=== PATIENT | male | born 1990 | race Caucasian/White ===

== ENCOUNTER 2020-01-07 22:00 | Emergency (ER) | payer OTHER, SELFPAY ==
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
[2020-01-07 22:16] VITALS: BP 125/67; PULSE 65; RESP 16; TEMP 36.4; O2SAT 98
== END 2020-01-07 23:09 | disposition home or self-care (01) ==
PROVIDERS: Emergency Provider Emergency Medicine
DX: T59.811A Toxic effect of smoke, accidental (unintentional), initial encounter (principal); J68.0 Bronchitis and pneumonitis due to chemicals, gases, fumes and vapors
CPT/HCPCS: 71046; 88740; 99282; 99283

== ENCOUNTER 2021-01-23 10:12 | Emergency (ER) | payer OTHER, SELFPAY ==
[2021-01-23 10:15] VITALS: BP 137/97; PULSE 92; RESP 18; TEMP 36.5; O2SAT 98; BMI 30.3
--- NOTE | 2021-01-23 11:18 | ED_ITS ---
HPI - Extremity Injury (Upper) General Chief Complaint: Extremity Injury, Upper Stated Complaint: cut off tip of finger left thumb Time Seen by Provider: 01/23/21 11:07 Source: patient Mode of arrival: Ambulatory Limitations: no limitations History of Present Illness HPI narrative: This is a 30-year-old male comes in with complaint of a avulsion laceration to the distal tip of his left thumb. Patient states the skin flap almost completely off. He states that the bleeding has stopped he was able to press it back down and it is well aligned. Patient does state there is some discoloration. He has good sensation otherwise throughout the thumb. He states his tetanus is up-to-date. He denies any other medical issues or regular medications. Patient states that he was cutting while making breakfast this mor alejandra and got distracted while watching their baby. Patient does not have any other complaints currently. Related Data Allergies Allergy/AdvReac Type Severity Reaction Status Date / Time No Known Drug Allergies Allergy Verified 01/23/21 10:22 Review of Systems Review of Systems ROS Unobtainable: All systems reviewed & are unremarkable except as noted in HPI and below Patient History Social History Smoking Status: Never smoker Smoking Status: Never smoker Substance Use Type: does not use Exam Narrative Exam Narrative: GENERAL: Alert and oriented x three, well-nourished male in mild distress. HEENT: Head normocephalic, atraumatic, EOMI, pupils reactive, face symmetric, moist mucous membranes NECK: Supple, full range of motion EXTREMITIES: Normal range of motion, no clubbing or edema. Patient has an avulsion laceration that is approximately a 0.5 cm flap that has been replaced and is well aligned but only has a very small sections still attached to the fi nger. Patient has some discoloration of the flap itself but the rest of the finger is neurovascularly intact with cap refill less than 2 seconds Patient does not have any active bleeding at this time. He has full range of motion. He does not have any real involvement appreciated. The avulsion is just on the distal tip of the thumb and abuts next to the nail. NEUROLOGICAL: Cranial nerves II through XII grossly intact. Moving all extremities SKIN: Warm, dry, no petechiae, no rashes or lesions otherwise noted. Initial Vital Signs Initial Vital Signs: Vital Signs Temperature 97.7 F 01/23/21 10:15 Pulse Rate 92 H 01/23/21 10:15 Respiratory Rate 18 01/23/21 10:15 Blood Pressure 137/97 H 01/23/21 10:15 Pulse Oximetry 98 01/23/21 10:15 Procedures Laceration Repair Laceration 1: Site: other (thumb) Side (If applicable): left Description: flap Pre-repair: irrigated extensively (cleansed) Skin layer closed with: dermabond Course Vital Signs Vital signs: Vital Signs - 8 hr 01/23/21 10:15 Temperature 97.7 F Pulse Rate 92 H Respiratory Rate 18 Blood Pressure 137/97 H Pulse Oximetry 98 MDM - Extremity Injury (Upper) MDM Narrative Medical decision making narrative: Discussed with patient has avulsion injury we can allow it to dry out and then heal by secondary intention or complete a small amount of Dermabond to help the avulsion flap stay in place and allow the area to try to heal. There is a chance that that portion could still fall off and would need to heal by secondary intention. His laceration is the size in nature and that suturing would not be beneficial. Patient elects to try Dermabond. Area was cleansed here in the department. We discussed wound care and return precautions and signs and symptoms to watch for. Discharge Plan Departure Patient Disposition: Home Clinical Impression: Laceration of left thumb Qualifiers: Encounter type: initial encounter Damage to nail status: without damage Foreign body presence: without foreign body Qualified Code(s): S61.012A - Laceration without foreign body of left thumb without damage to nail, initial encounter Instructions: DI for Avulsion Laceration (Not Requiring Sutures) Activity Restrictions/Additional Instructions: Wound Care: Keep wound(s) clean and dry. Wash twice daily with soap and water only. Pat dry. Do not use over the counter products (alcohol or peroxide)on the wounds unless i nstructed by a physician. If the area of skin does fall off a do not try to replace it. Allow the area to heal by secondary intention or to heal from the inside out. If wound condition worsens (increased/expanding redness, developing fluid blisters, or worsening pain), either contact your doctor for an urgent re- assessment , or return to the Emergency Department. Return to the Emergency Department for any new or worsening symptoms. Return if fever greater than 100.4 Fahrenheit, increased swelling, increasing pain or worsening symptoms such as increased discharge or spreading redness.
--- NOTE | 2021-01-23 11:50 | PC.NURSE ---
wound closed with dermabond and dressed with tube gauze.
== END 2021-01-23 11:52 | disposition home or self-care (01) ==
PROVIDERS: Emergency Provider Emergency Medicine
DX: S61.012A Laceration without foreign body of left thumb without damage to nail, initial encounter (principal); W26.0XXA Contact with knife, initial encounter
CPT/HCPCS: 99282

== ENCOUNTER 2024-04-09 22:19 | Observation (INO) | payer OTHER, SELFPAY ==
[2024-04-09 22:29] VITALS: BP 131/80; PULSE 103; RESP 18; TEMP 37; O2SAT 95; BMI 33.5
[2024-04-09 23:26] LABS: Add Manual Diff / Slide Review NO; Basophils Absolute Auto 100 /uL (0-100); Basophils Percent Auto 0.5 % (0-2); Eosinophils Absolute Auto 100 /uL (0-450); Eosinophils Percent Auto 0.7 % (2-4); Hematocrit 45.1 % (41-53); Hemoglobin 15.7 g/dL (13.5-17.5); Lymphocytes Absolute Auto 2200 /uL (1100-4500); Lymphocytes Percent Auto 16.3 % (25-40); Mean Corpuscular HGB Conc 34.7 % (30-36); Mean Corpuscular Hemoglobin 30.8 PG (26-34); Mean Corpuscular Volume 88.7 fL (80-100); Monocytes Absolute Auto 1300 /uL (0-900); Monocytes Percent Auto 9.8 % (3-14); Neutrophils Absolute Auto 10000 /uL (1500-7000); Neutrophils Percent Auto 72.7 % (50-75); Platelet Count 262 X10^3/uL (150-400); Red Blood Cell Count 5.08 X10^6/uL (4.5-5.9); Red Cell Distribution Width 12.9 % (11.6-14.8); White Blood Cell Count 13.7 X10^3/uL (4.5-11.0)
[2024-04-09 23:39] LABS: Alanine Aminotransferase 68 IU/L (<50); Albumin 4.7 g/dL (3.5-5.0); Albumin Globulin Ratio 1.6 (1.0-2.8); Alkaline Phosphatase 64 U/L (38-126); Aspartate Aminotransferase 47 IU/L (17-59); BUN Creatinine Ratio 15.4 (6-22); Bilirubin Total 1.5 mg/dL (0.2-1.3); Blood Urea Nitrogen 14 mg/dL (9-20); Calcium 9.7 mg/dL (8.4-10.2); Carbon Dioxide 27 mmol/L (22-32); Chloride 104 mmol/L (98-107); Estimated Glomerular Filt Rate > 60 mL/min (>60); Globulin 2.9 g/dL (1.7-4.1); Glucose 96 mg/dL (70-100); HEMOLYSIS < 15 (0-50); Lipase 46 U/L (23-300); Potassium 4.2 mmol/L (3.4-5.1); Sodium 138 mmol/L (137-145); Total Protein 7.6 g/dL (6.3-8.2)
[2024-04-10] VITALS (17 sets, daily range): BP systolic 110–156; BP diastolic 63–90; PULSE 75–109; RESP 14–22; TEMP 36.4–36.9; O2SAT 93–99; BMI 33.5
--- NOTE | 2024-04-10 | PATH_ITS ---
[facility] Accession Number: [id number] No. of containers..01 Tissue . 01 Material submitted: . appendix - APPENDIX . 01 Diagnosis: APPENDIX, APPENDECTOMY: Acute suppurative appendicitis with serositis. Negative for dysplasia and malignancy. [facility] 04/14/2024 1012 Local . 01 Electronically signed: . Delilah Hernandez MD, Pathologist NPI- [id number] . 01 Gross description: . Received in formalin, labeled with two identifiers and appendix, is a valadez vermiform appendix measuring 7.0 cm in length by 0.8 cm in diameter with the mesoappendix extending out to 3.2 cm. The serosa is valadez and smooth with a small amount of adherent material consistent with exudate. The margin is inked blue. The lumen contains minimal brown semisolid material and averages 0.1 cm in diameter. The ferrara average 0.3 cm thick with no perforation or lesions identified. Ball Sorter sections to include the margin, cross sections, and one-half of the bisected distal tip are submitted in cassette A1. ([id number]) /[facility] 04/12/2024 1859 Local . 01 Pathologist provided ICD-10: K35.80 . 01 CPT . 796754 Specimen Comment: A courtesy copy of this report has been sent to [phone] Performed at: [address] [address], [place], [place] [id number] MD Geremias Lopez MD Phone: [phone]
--- NOTE | 2024-04-10 00:24 | ED_ITS ---
HPI - Abdominal Pain General Chief Complaint: Abdominal Pain Stated Complaint: rt sided abd pain Time Seen by Provider: 04/10/24 00:19 Source: patient Mode of arrival: Ambulatory History of Present Illness HPI narrative: Patient 33-year-old healthy female presenting today with right lower quadrant pain. He reports yesterday he ate by 2 lb of strawberries today he started noticing some periumbilical pain and then it moved down to right lower quadrant. He is reports that the pain was so bad he was unable to walk earlier today. He has had decreased appetite but no fever although he is currently under multiple blankets and has been chilled. No nausea or vomiting no change in bowel habits. No prior history of diverticulitis or appendectomy. Related Data Allergies Allergy/AdvReac Type Severity Reaction Status Date / Time No Known Drug Allergies Allergy Verified 01/23/21 10:22 Patient History Social History Smoking Status: Never smoker Smoking Status: Never smoker alcohol intake frequency: holidays/special occasions only Substance Use Type: does not use Exam Initial Vital Signs Initial Vital Signs: Vital Signs Temperature 98.6 F 04/09/24 22:29 Pulse Rate 103 H 04/09/24 22:29 Respiratory Rate 18 04/09/24 22:29 Blood Pressure 131/80 04/09/24 22:29 Pulse Oximetry 95 04/09/24 22:29 Oxygen Delivery Method Room Air 04/09/24 22:29 GENERAL: Alert well-appearing 33-year-old male and in no acute distress. HEENT: Head atraumatic,EOMI, pupils reactive, face symmetric, moist mucous membranes CARDIOVASCULAR: Regular rate and rhythm without murmurs, rubs or gallops. RESPIRATORY: Breath sounds equal bilaterally, no wheezes rales or rhonchi. ABDOMEN: Soft, tender right lower quadrant no guarding or rebound EXTREMITIES: Normal range of motion, no clubbing or edema. Neurovascularly intact NEUROLOGICAL: Alert and oriented x4.Normal gait and speech. SKIN: Warm, dry, no laceration, no petechiae, no rashes or lesions. Course Orders Ordered: ED Orders 04/09/24 22:54 Complete Blood Count AUTO DIFF Stat Comprehensive Metabolic Panel Stat Lipase Stat 04/10/24 00:23 CT abdomen pelvis w con Stat Celecoxib (Celecoxib 200 Mg Capsule) 200 mg PO BID WILDA Gabapentin (Gabapentin 300 Mg Capsule) 300 mg PO TID WILDA Dextrose/Sodium Chloride (Dextrose 5%-0.9% Ns) 1,000 mls @ 100 mls/hr IV CONT WILDA Piperacillin Sod/Tazobactam (Sod 4.5 gm/ Sodium Chloride) 100 mls @ 25 mls/hr IV Q8H WILDA Ibuprofen (Ibuprofen 600 Mg Tablet) 600 mg PO Q6H WILDA Naloxone HCl (Naloxone 0.4 Mg/Ml Vial) 0.2 mg IV Q2MIN PRN PRN Reason: Opiate Reversal Ondansetron HCl (Ondansetron 4 Mg/2 Ml Inj) 4 mg IV NOW PRN PRN Reason: Nausea And Vomiting Ondansetron HCl (Ondansetron 4 Mg Odt) 4 mg PO NOW PRN PRN Reason: Nausea And Vomiting Oxycodone HCl (Oxycodone Ir 10 Mg Tablet) 10 mg PO Q6HR PRN PRN Reason: Pain, Severe (7-10) Discontinued Medications Piperacillin Sod/Tazobactam (Sod 4.5 gm/ Sodium Chloride) 100 mls @ 200 mls/hr IV NOW ONE Stop: 04/10/24 01:43 Last Admin: 04/10/24 02:20 Dose: 200 mls/hr Documented By: REGINALDO Ketorolac Tromethamine (Ketorolac 30 Mg/Ml Vial) 15 mg IV NOW ONE Stop: 04/10/24 00:24 Last Admin: 04/10/24 00:31 Dose: 15 mg Documented By: REGINALDO Scopolamine (Scopolamine 1 Patch) 1 patch TOP NOW ONE Stop: 04/10/24 02:05 Vital Signs Vital signs: Vital Signs - 8 hr 04/09/24 22:29 04/10/24 00:10 04/10/24 00:10 Temperature 98.6 F Pulse Rate 103 H 93 H Respiratory Rate 18 Blood Pressure 131/80 137/81 Pulse Oximetry 95 99 Oxygen Delivery Method Room Air 04/10/24 00:30 04/10/24 00:30 04/10/24 00:55 Temperature Pulse Rate 98 H Respiratory Rate Blood Pressure 136/90 119/63 Pulse Oximetry 97 Oxygen Delivery Method 04/10/24 00:55 04/10/24 01:00 04/10/24 01:00 Temperature Pulse Rate 108 H 109 H Respiratory Rate Blood Pressure 133/64 Pulse Oximetry 96 97 Oxygen Delivery Method 04/10/24 01:30 04/10/24 01:30 04/10/24 02:00 Temperature Pulse Rate 98 H Respiratory Rate Blood Pressure 137/77 146/68 H Pulse Oximetry 96 Oxygen Delivery Method 04/10/24 02:00 Temperature Pulse Rate 96 H Respiratory Rate Blood Pressure Pulse Oximetry 97 Oxygen Delivery Method MDM - Abdominal Pain Lab Data 04/09/24 22:54 04/09/24 22:54 Labs: Lab Results 04/09/24 Range/Units 22:54 WBC 13.7 H (4.5-11.0) X10^3/uL RBC 5.08 (4.5-5.9) X10^6/uL Hgb 15.7 (13.5-17.5) g/dL Hct 45.1 (41-53) % MCV 88.7 (80-100) fL MCH 30.8 (26-34) PG MCHC 34.7 (30-36) % RDW 12.9 (11.6-14.8) % Plt Count 262 (150-400) X10^3/uL Neut % (Auto) 72.7 (50-75) % Lymph % (Auto) 16.3 L (25-40) % [place] % (Auto) 9.8 (3-14) % Eos % (Auto) 0.7 L (2-4) % Baso % (Auto) 0.5 (0-2) % Neut # (Auto) 70991 H (0203-4876) /uL Lymph # (Auto) 2200 (2433-2576) /uL [place] # (Auto) 1300 H (0-900) /uL Eos # (Auto) 100 (0-450) /uL Baso # (Auto) 100 (0-100) /uL Sodium 138 (137-145) mmol/L Potassium 4.2 (3.4-5.1) mmol/L Chloride 104 (98-107) mmol/L Carbon Dioxide 27 (22-32) mmol/L BUN 14 (9-20) mg/dL Creatinine 0.91 (0.66-1.25) mg/dL Estimated GFR > 60 (>60) mL/min BUN/Creatinine Ratio 15.4 (6-22) Glucose 96 (70-100) mg/dL Calcium 9.7 (8.4-10.2) mg/dL Total Bilirubin 1.5 H (0.2-1.3) mg/dL AST 47 (17-59) IU/L ALT 68 H (<50) IU/L Alkaline Phosphatase 64 (38-126) U/L Total Protein 7.6 (6.3-8.2) g/dL Albumin 4.7 (3.5-5.0) g/dL Globulin 2.9 (1.7-4.1) g/dL Albumin/Globulin Ratio 1.6 (1.0-2.8) Lipase 46 (23-300) U/L Imaging Data CT scan - abdomen/pelvis: Radiologist's Impression: PROCEDURE: CT ABDOMEN PELVIS W CON INDICATIONS: RLQ TECHNIQUE: After the administration of intravenous contrast, axial sections acquired from the lung bases to the pubic symphysis. Coronal and sagittal reformats were performed. For radiation dose reduction, the following was used: automated exposure control, adjustment of mA and/or kV according to patient size. COMPARISON: None. FINDINGS: Image quality: Diagnostic Lower chest: Unremarkable lung bases. Patulous distal esophagus partially seen. Normal heart size Liver: Hepatic steatosis. No solid mass. Suspected areas of focal fatty sparing around the gallbladder fossa Gallbladder and biliary system: Unremarkable, nondilated Pancreas: No ductal dilation Spleen: Nonenlarged Adrenals: No discrete nodules Kidneys: No solid mass or hydronephrosis. Small cysts are present. No complicated lesion requiring follow-up. Vessels and lymph nodes: The main portal vein is patent. No abdominal aortic aneurysm. No pathologic lymph nodes by size criteria. Bowel and peritoneum: No evidence of small bowel obstruction. No pathologic ascites or drainable abscess. Acute appendicitis. Body wall: Unremarkable Pelvis: Bladder is unremarkable. Right prostate calcifications are present. Prostate is not well evaluated on this study Bones: No acute or suspicious osseous finding. IMPRESSION: Acute uncomplicated appendicitis. Hepatic steatosis. Other findings above. Dictated by: Sunday Winn M.D. on 04/10/2024 at 1:11 MDM Narrative Medical decision making narrative: Patient healthy 33-year-old male presents today with right lower quadrant pain. He did have pain around his periumbilical region and then went down to McBurney's point. On exam he is tenderness right lower quadrant and high suspicion for acute appendicitis. Blood work has been reviewed he has mild leukocytosis of 13. CT does confirm acute uncomplicated appendicitis. Dr. Stratton updated on patient's symptoms test results and agrees to admit patient. Patient is given 1 dose of Zosyn Toradol. Toradol seems to have helped his pain quite a bit. Patient's vitals are stable he has afebrile no evidence of sepsis. Discharge Plan Departure Patient Disposition: Admitted as Observation Clinical Impression: Acute appendicitis Admit Date/Time: 04/10/24 02:02 Admit Provider: Renae Stratton
[2024-04-10] MEDS: KETOROLAC 30 MG/ML VIAL 15 MG IV (00:31)
[2024-04-10] MEDS: PIPERACILLIN/TAZO 4.5 GM in SODIUM CHLORIDE 0.9% 100 ML IV (02:20)
[2024-04-10] MEDS: CELECOXIB 200 MG CAPSULE PO (03:17)
[2024-04-10] MEDS: GABAPENTIN 300 MG CAPSULE PO ×2 (03:17→14:04)
[2024-04-10] MEDS: SCOPOLAMINE 1 PATCH TOP (03:17)
[2024-04-10] MEDS: DEXTROSE 5%-0.9% NS 1,000 ML 100 ML IV (03:18)
[2024-04-10] MEDS: PIPERACILLIN/TAZO 3.375 GM in SODIUM CHLORIDE 0.9% 100 ML IV (06:15)
--- NOTE | 2024-04-10 10:00 | PM.HP.1 ---
History of Present Illness History of Present Illness Date Patient Seen: 04/10/24 Time Patient Seen: 10:00 Chief complaint: rt sided abd pain Narrative: 33-year-old healthy male admitted to [facility] with acute appendicitis. Developed periumbilical pain yesterday migrated down in the right lower quadrant. Reports chills and malaise. CT abdomen pelvis demonstrates acute uncomplicated appendicitis, WBC at admission 13 with left shift. [facility] Social History household members: spouse and children Smoking Status: Never smoker alcohol intake: current Meds Home Medications and Allergies Home Medications Medication Instructions Recorded Confirmed Type No Known Home Medications 04/10/24 04/10/24 History Allergies Allergy/AdvReac Type Severity Reaction Status Date / Time No Known Drug Allergies Allergy Verified 01/23/21 10:22 Exam Vital Signs (past 8 hours): - 04/10/24 02:22 04/10/24 02:30 04/10/24 02:30 Temperature Pulse Rate 97 H Respiratory Rate Blood Pressure 156/68 H Pulse Oximetry 96 Oxygen Delivery Method Room Air Oxygen Flow Rate 04/10/24 03:00 04/10/24 03:00 04/10/24 03:30 Temperature 98.1 F 98.4 F Pulse Rate 98 H 85 Respiratory Rate 18 20 Blood Pressure 147/67 H 127/80 Pulse Oximetry 96 99 Oxygen Delivery Method Oxygen Flow Rate 0 04/10/24 06:00 Temperature 98.1 F Pulse Rate 85 Respiratory Rate 14 Blood Pressure 113/71 Pulse Oximetry 96 Oxygen Delivery Method Oxygen Flow Rate Oxygen Delivery Method Room Air Oxygen Flow Rate 0 Narrative Exam Narrative: GENERAL: A well nourished, well developed adult man, resting comfortably, in no acute distress. HEENT: Normocephalic, atraumatic. No scleral icterus CHEST: Rising symmetrically. No audible wheezes CARDIOVASCULAR: Warm and well perfused. Regular rate ABDOMEN: Tender right lower quadrant no peritonitis EXTREMITIES: Normal tone and without edema. NEUROLOGIC: Moving all extremities spontaneously. No gross motor deficits. Objective Labs 04/09/24 22:54 04/09/24 22:54 Labs: Laboratory Results - last 24 hr 04/09/24 22:54 WBC 13.7 H RBC 5.08 Hgb 15.7 Hct 45.1 MCV 88.7 MCH 30.8 MCHC 34.7 RDW 12.9 Plt Count 262 Neut % (Auto) 72.7 Lymph % (Auto) 16.3 L [place] % (Auto) 9.8 Eos % (Auto) 0.7 L Baso % (Auto) 0.5 Neut # (Auto) 23277 H Lymph # (Auto) 2200 [place] # (Auto) 1300 H Eos # (Auto) 100 Baso # (Auto) 100 Sodium 138 Potassium 4.2 Chloride 104 Carbon Dioxide 27 BUN 14 Creatinine 0.91 Estimated GFR > 60 BUN/Creatinine Ratio 15.4 Glucose 96 Calcium 9.7 Total Bilirubin 1.5 H AST 47 ALT 68 H Alkaline Phosphatase 64 Total Protein 7.6 Albumin 4.7 Globulin 2.9 Albumin/Globulin Ratio 1.6 Lipase 46 Assessment & Plan Assessment and plan (1) Acute appendicitis: Status: Acute Assessment & Plan narrative: 33-year-old healthy man with symptoms and radiographic findings consistent with acute uncomplicated appendicitis. We discussed management of appendicitis including both non operative antibiotic therapy versus appendectomy. Following discussion his preference is to proceed with surgery. Overview of the operation was discussed. Operative risks including hemorrhage, infection, staple line leak, damage to surrounding structures, conversion to open were reviewed. He provides his written and verbal consent to proceed Time-Based Coding :: [TOTAL MINUTES] spent with patient and on the chart (including review of chart, obtaining history, exam, reviewing outside data, placing orders, documenting exam and treatment plan, and counseling patient) on [DATE]. Quality VTE Deep Vein Thrombosis/Pulmonary Embolism Present on Admission: No
[2024-04-10] MEDS: LACTATED RINGERS 1,000 ML 42 ML IV (10:11)
--- NOTE | 2024-04-10 10:41 | SUR.OPER ---
Supine on padded OR bed, head on pillow, safety belt at thigh, left arm padded and tucked at side. Right arm secured on padded arm board <90 degrees abduction. Legs uncrossed. Padded footboard in place. Tape over blanket to secure lower legs.
[2024-04-10] MEDS: BUPIVACAINE 0.25% (PF) VIAL 30 ML INJ (10:46)
--- NOTE | 2024-04-10 11:11 | PC.NURSE ---
Patient is A&OX4, VSS, afebrile on RA. This a.m. he denies abdomen pain. He has been NPO since before midnight and has IVF D5NS running at 100ml/hr as well as IV zosyn antibiotics. A.M. medications held as patient did not complain of any discomfort. Report given to Parris FALLON in Preop and patient transported via bed to Pre-op at 10 A.M. Patient's at bedside supportive.
--- NOTE | 2024-04-10 11:22 | PM.OP.1 ---
Operative Date/Time/Diagnoses Date of procedure: 04/10/24 Time of procedure: 11:22 Pre-op diagnosis: Acute appendicitis Post-op diagnosis: same Procedure & Clinicians Procedure: Laparoscopic appendectomy Same procedure as scheduled: Yes Indications: 33-year-old healthy male with symptoms and radiographic findings consistent with acute uncomplicated appendicitis Surgeon: Segun Chandra Click Yes if Unassisted: Yes Anesthesia Type: General Operative Notes Findings: Acute non perforated appendicitis Specimen(s): other (Appendix) Estimated Blood Loss (mL): 10 Procedure in detail: Patient was brought to the operating room placed supine on the table. Bilateral lower extremity compression devices were applied. Anesthesia was induced and they intubated with an endotracheal tube. They received 3.375 g of Zosyn prior to skin incision. The left arm was tucked and appropriately padded. They were prepped and draped in sterile fashion. Time-out was performed. An infraumbilical incision was made the umbilical stalk was grasped and elevated and incision was made and the abdomen was entered atraumatically. A 12 mm balloon trocar was then placed through the incision and pneumoperitoneum of 14 mm Hg was established. The scope was then inserted and the abdomen inspected, there was no evidence of injury upon entry. Two 5 mm ports were placed under direct visualization, one in the left lower quadrant and second in the lower midline. A thorough laparoscopic evaluation was performed inspecting all four quadrants. The patient was then tilted right side up. The small bowel was then swept to the upper aspect of the abdomen. The tenie were followed to the base of the cecum where the appendix was identified. The appendix was was mobilized from its lateral attachments. It was acutely inflamed but not perforated. The appendix was grasped and a window within the mesentery was made at the base of the appendix using the [place] dissector with care to avoid injuring the cecum. The mesoappendix was then divided using the endo-stapler with a staple length of 2.5 mm-white load. The mesenteric staple line was inspected for hemostasis. The appendix was then amputated flush at the cecum using the endo-stapler blue load. The specimen was retrieved using a endoscopic retrieval bag through the 10 mm infra-umbilical port. The right paracolic gutter and the pouch of Walter were irrigated The 5 mm ports were then removed under direct visualization. The umbilical fascial incision was closed with 0 Vicryl in a figure-eight fashion. The skin wounds were irrigated and closed with 4-0 Monocryl followed by the application of Dermabond. Sponge instrument count at the end of the operation was correct. The patient tolerated procedure well was extubated and transferred to the postoperative care unit in stable condition. Complications: none Post-operative Condition: stable Disposition: Acute Care
--- NOTE | 2024-04-10 15:36 | CM.DANOTE ---
Patient is a 33 yo male who was admitted on 04/10/24 for Abd Pain. Pt has [employer] for insurance and his PCP is at the [facility]. EMR was reviewed. Per Surgeon, pt with acute appendicitis and was taken to OR for Lap Appe and tolerated procedure well and now medically stable to discharge home this afternoon. Per RN, pt independent in room and spouse bedside and pt steady and no concerns at this time and spouse plans to provide transport home. Pt lives in [place] with his and is enlisted on the [employer] and independent with ADLs at baseline and drives and no identified discharge planning needs. Plan: Patient to discharge home today via spouse POV and outpt f/u. No further SW needs at this time. DARIUSZ Zaman
--- NOTE | 2024-04-10 15:40 | PC.NURSE ---
Patient returns from PACU at approximately 1145 a.m. He is alert OX4, VSS, afebrile on RA. X3 lap sites VIVI c/d/i. He reports pain is tolerable. He orders lunch and tolerates it well. Able to void and ambulate in his room independently without difficulty. BS +X4 and he reports passing some gas. at bedside supportive and helpful. He is eager to discharge home this afternoon. He verbalizes understanding of site care, activity limitations, medications, and follow up appointment as well as s/sx of complication/infection. He is escorted by RN with all of his belongings to private vehicle for discharge home with today at 1418 this afternoon.
--- NOTE | 2024-04-18 07:07 | PC.NURSE ---
Late Entry: Piperacillin infusion initiated 04/10 at 0220 complete at 0251. Piperacillin infusion initiated 04/10 ate 0615 complete at 1016.
== END 2024-04-10 14:18 | disposition home or self-care (01) ==
LOC: ED 04-10 00:19 → AC 04-10 02:03
PROVIDERS: Surgery; Admitting Provider Surgery; Emergency Provider Emergency Medicine; Referring Provider Emergency Medicine; Visit Provider Surgery
PROC: 0DTJ4ZZ Resection of Appendix, Percutaneous Endoscopic Approach (ICD-10-PCS; CPT 44970; principal; 2024-04-10 10:00)
DX: R10.31 Right lower quadrant pain (principal); K35.80 Unspecified acute appendicitis
CPT/HCPCS: 44970; 36415; 74177; 80053; 83690; 85025; 96365; 96366; 96375; 99222; 99284; G0378; J1100; J1170; J1885; J2405; J2543; J2704; J3490; Q9967